=== PATIENT | female | born 1960 | race Caucasian/White ===

== ENCOUNTER 2016-07-04 14:02 | Emergency (ER) | payer BC ==
[2016-07-04] MEDS ORDERED: methylPREDNISolone SOD SUCC* 125 MG 2 ML VIAL IV ONE (14:28)
[2016-07-04] MEDS ORDERED: Famotidine IV* 10 MG/ML 2 ML (20 mg) IV SLOW PU ONE (14:29)
[2016-07-04] MEDS ORDERED: cefTRIAXone VIAL(*) 1,000 MG VIAL IVPB ONE (14:29)
[2016-07-04] MEDS ORDERED: LoraTADine TAB(NF) 10 MG TAB (AUTOSUB CETIRIRIZINE) PO ONE (14:32)
--- NOTE | 2016-07-04 14:32 | UC ---
Skin Complaint HPI - HPI Summary HPI Summary: Left facial swelling today. Awoke with it. Had headache last pm. No known infection or exposure to allergen. No dental pain - History of Current Complaint Chief Complaint: UCHeadache Time Seen by Provider: 07/04/16 14:26 Stated Complaint: FACIAL SWELLING/WARM/RED Hx Obtained From: Patient ?: No Onset/Duration: Sudden Onset, Lasting Hours, Still Present Timing: Constant Onset Severity: Moderate Current Severity: Severe Pain Intensity: 6 Pain Scale Used: 0-10 Numeric Location: Face - left side Character: Swelling, Pain, Redness, Painful Aggravating: Nothing Alleviating: Nothing Associated Signs & Symptoms: Positive: Rash, Tenderness - left rufino. Negative: Fever, Chills, Cough, Hoarseness, Throat Tightening, Red Streaks - Allergy/Home Medications Allergies/Adverse Reactions: Allergies Allergy/AdvReac Type Severity Reaction Status Date / Time No Known Allergies Allergy Verified 07/04/16 14:12 Home Medications: Home Medications Betamethasone Dipropionate Aug [Betamethasone Dipropionat] 1 applic TOPICAL BID PRN 07/04/16 [History Confirmed 07/04/16] Cholecalciferol [Vitamin D3] 1 tab PO DAILY 07/04/16 [History Confirmed 07/04/16 ] Insulin Aspart [Novolog] 1 units .ROUTE SEE INSTRUCTIONS 07/04/16 [History Confirmed 07/04/16] Lisinopril [Zestril 10 MG-] 1 tab PO DAILY 07/04/16 [History Confirmed 07/04/16] Multiple Vitamins W/ Minerals [One-A-Day For Her Vitacra] 1 tab PO DAILY [History Confirmed 07/04/16] Simvastatin [Zocor 40 MG (NF)] 1 tab PO BEDTIME 07/04/16 [History Confirmed ] Review of Systems Constitutional: Negative Skin: Rash - redness and swelling left face only Eyes: Negative ENT: Negative Respiratory: Negative Cardiovascular: Negative Gastrointestinal: Negative Motor: Negative Neurovascular: Negative Musculoskeletal: Negative Neurological: Negative Psychological: Negative All Other Systems Reviewed And Are Negative: Yes PMH/Surg Hx/FS Hx/Imm Hx Endocrine History Of: Reports: Diabetes, Dyslipidemia Cardiovascular History Of: Reports: Hypertension - Surgical History Surgical History: Yes Surgery Procedure, Year, and Place: Tubal Ligation; Bladder Mesh - Family History Known Family History: Positive: Cardiac Disease - Social History Alcohol Use: Occasionally Substance Use Type: None Smoking Status (MU): Never Smoked Tobacco Physical Exam Triage Information Reviewed: Yes Appearance: Well-Nourished, Ill-Appearing, Pain Distress Vital Signs: Initial Vital Signs Temp 98.3 F 07/04/16 14:07 Pulse 86 07/04/16 14:07 Resp 16 07/04/16 14:07 BP 157/76 07/04/16 14:07 Pulse Ox 95 07/04/16 14:07 Vital Signs Reviewed: Yes Eyes: Positive: Conjunctiva Clear ENT: Positive: Normal ENT inspection, Pharynx normal, TMs normal. Negative: Muffled/hoarse voice Neck: Positive: Supple, Nontender, No Lymphadenopathy Respiratory: Positive: Lungs clear, Normal breath sounds, No respiratory distress Cardiovascular: Positive: RRR, No Murmur, Pulses Normal, Brisk Capillary Refill Abdomen Description: Positive: Nontender, No Organomegaly, Soft Bowel Sounds: Positive: Present Musculoskeletal: Positive: Strength Intact, ROM Intact Neurological Exam: Normal Psychological Exam: Normal Skin: Positive: Other - left facial redness and swelling, no rash or redness or urticaria elsewhere; Tongue not swollen, lips not swollen. Re-Evaluation - Re-Evaluation First Eval Re-Evaluation Time: 15:20 - less swelling and redness, has a ride home, will give benadryl Change: Improved Course/Dx - Course Course Of Treatment: Pt's quick response to Rx as allergy with decreased redness and swelling, favors dx of allergic reaction above cellulitis, although allergen is still unknown. Do not feel it is due to lisinopril, as no tongue or lip swelling, but pt will discuss with her PCP. - Differential Diagnoses - Skin Complaint Differential Diagnoses: Allergic Reaction, Anaphylaxis, Angioedema, Cellulitis, Drug Rash - Diagnoses Provider Diagnoses: Acute allergic reaction with facial swelling. BP in poor control. Facial cellulitis Discharge - Discharge Plan Condition: Stable Disposition: HOME Prescriptions: Cephalexin CAP* [Keflex 500 CAP*] 500 mg PO QID #40 cap Famotidine TAB 40 MG(NF) [Pepcid TAB 40 MG(NF)] 40 mg PO DAILY #5 tab predniSONE TAB* [Deltasone TAB*] 40 mg PO DAILY #10 tab Patient Education Materials: Cellulitis (ED), General Allergic Reaction (ED) Referrals: Keri Brunson MD [Primary Care Provider] - 2 Days Nila Damon MD [Medical Doctor] - As Soon As Possible (follow up with an management specialist as soon as possible. ) Additional Instructions: Dr. Segovia gave you loratadine 10mg orally, then benadryl 50mg IV, pepcid 20mg IV and solumedrol 125mg IV for allergic reaction. She gave you ceftriaxone 1 gm for possible facial cellulitis with improvement of your symptoms. Take benadryl 50mg four times a day for the next 48 hrs, and take the antibiotic if your sinusitis symptoms continue. Call 911 and Go to the emergency room if you have new or worsening symptoms. Have your blood pressure rechecked within a month for sure, as it was elevated today. You did not have tongue or lip swelling today, so Dr. Segovia does not think that this is angioedema but lip and tongue swelling is a common reaction to lisinopril. So consider stopping the lisinopril after discussion with your doctor.
[2016-07-04] MEDS ORDERED: diPHENhydraMINE IV* 50 MG/ML 1 ml VIAL (BENADRYL) IV ONE (15:26)
[2016-07-04 16:17] VITALS: BP 146/77
== END 2016-07-04 16:21 | disposition home or self-care (01) ==
LOC: UCEAST 14:02
DX: T78.40XA Allergy, unspecified, initial encounter (principal); X58.XXXA Exposure to other specified factors, initial encounter; L03.211 Cellulitis of face; I10 Essential (primary) hypertension; E11.9 Type 2 diabetes mellitus without complications; Z79.4 Long term (current) use of insulin; E78.5 Hyperlipidemia, unspecified
CPT/HCPCS: 87651; 96374; 96375; 99213; A9270-GY; G0463; J0696; J1200; J2930

== ENCOUNTER 2017-05-19 09:52 | Emergency (ER) | payer BC ==
--- NOTE | 2017-05-19 10:02 | UC ---
Throat Pain/Nasal Callum HPI - HPI Summary HPI Summary: Pt presents with post nasal drip and dry cough for the last 2-3 weeks. Sinus pain/pressure/congestion for the last 5 days. She has been taking an OTC cold and flu medicine with no relief. Denies fever, chills, SOB, chest pain, abdominal pain. - History of Current Complaint Stated Complaint: SINUS ISSUE Hx Obtained From: Patient Onset/Duration: Gradual Onset - Allergies/Home Medications Allergies/Adverse Reactions: Allergies Allergy/AdvReac Type Severity Reaction Status Date / Time No Known Allergies Allergy Verified 05/19/17 10:01 Home Medications: Home Medications Betamethasone Dip 0.05% ON(NF) [Betamethasone Dipr 0.05% OINT(NF)] 1 applic TOPICAL DAILY PRN 05/19/17 [History Confirmed 05/19/17] PMH/Surg Hx/FS Hx/Imm Hx Endocrine History: Diabetes, Dyslipidemia Cardiovascular History: Hypertension - Surgical History Surgical History: Yes Surgery Procedure, Year, and Place: Tubal Ligation; Bladder Mesh - Family History Known Family History: Positive: Cardiac Disease - Social History Occupation: Employed Full-time Lives: With Family Alcohol Use: Occasionally Substance Use Type: None Smoking Status (MU): Never Smoked Tobacco Review of Systems Constitutional: Negative Skin: Negative Eyes: Negative ENT: Nasal Discharge, Sinus Congestion, Sinus Pain/Tenderness Respiratory: Cough Cardiovascular: Negative Gastrointestinal: Negative Neurological: Negative Psychological: Negative All Other Systems Reviewed And Are Negative: Yes Physical Exam - Summary Physical Exam Summary: GENERAL: NAD. WDWN HEENT: NC/AT. Conjunctiva clear without inflammation or discharge. TMs intact , no bulging, erythema, or edema. Nasal mucosa mildly swollen and erythematous with yellow/clear discharge. TTP maxillary sinus. Posterior oropharynx without exudates, erythema, or tonsillar enlargement. Uvula midline. NECK: Supple without lymphadenopathy CHEST: CTAB. No r/r/w. No accessory muscle use. Breathing comfortably and in no distress. CV: RRR. Without m/r/g. Pulses intact. SKIN: No rash or erythema noted. NEURO: Alert. CN II-XII grossly intact. PSYCH: Age appropriate behavior. Triage Information Reviewed: Yes Throat Pain/Nasal Course/Dx - Course Course Of Treatment: Sinusitis - pt says that zpak works best for her and doesn' t give her a yeast infection as much as others. Will rx for this. - Differential Dx/Diagnosis Provider Diagnoses: Sinusitis Discharge - Discharge Plan Condition: Stable Disposition: HOME Prescriptions: Azithromycin TAB* [Zithromax TAB (Z-IVON) 250 mg #6 tabs] 2 tab PO .TODAY, THEN 1 DAILY #1 ivon Patient Education Materials: Sinusitis (ED) Referrals: Keri Brunson MD [Primary Care Provider] - Additional Instructions: If you develop a fever, shortness of breath, chest pain, new or worsening symptoms - please call your PCP or go to the ED.
[2017-05-19 10:08] VITALS: BP 129/70
== END 2017-05-19 10:20 | disposition home or self-care (01) ==
LOC: UCEAST 09:52
DX: J32.9 Chronic sinusitis, unspecified (principal); E11.9 Type 2 diabetes mellitus without complications; Z79.4 Long term (current) use of insulin; E78.5 Hyperlipidemia, unspecified; I10 Essential (primary) hypertension
CPT/HCPCS: 99212; G0463

== ENCOUNTER 2019-05-10 15:57 | Emergency (ER) | payer BC ==
--- OUTSIDE RECORDS SUMMARY | 2019-05-10 16:04 | XMS REPORT | Summary of Care ---
:1960 Author Organization [facility] Address [address] [place] [address] Care Team Providers Name Role Phone Keri Brunson MD Primary Care Provider Reason for Visit Reason Comments Diabetes Encounter Details Date Type Department Care Team Description 04/06/2019 Office Visit Angela Valderrama Type 1 diabetes mellitus with hyperglycemia (Primary Dx); ORIENT SGEOFFREY Insulin long-term use; [address] Essential hypertension; [place] [address] Uncontrolled type 1 diabetes with retinopathy; [place], [place] [phone] Uncontrolled type 1 diabetes mellitus with hyperglycemia [id number] [phone] Allergies No Known Allergiesdocumented as of this encounter (statuses as of 04/12/2019) Medications Medication Sig Dispensed Refills Start End Date Status Date Blood Glucose by Does not 0 Active Monitoring Suppl apply route ([employer] CONTOUR NEXT MONITOR) w/Device KIT Multiple Take by mouth 0 Active Vitamins-Calcium daily (ONE-A-DAY WOMENS FORMULA PO) Cholecalciferol Take 4,000 0 Active (VITAMIN D) 2000 Units by mouth units tablet daily Insulin Infusion Use as 0 Active Pump (PARADIGM directed. REVEL INSULIN PUMP) Serial number NEO [id number] clotrimazole-betame Apply topically 0 Active thasone (LOTRISONE) as needed 8 cream ketoconazole Apply twice 30 g 2 Active (NIZORAL) 2 % cream daily 8 glucose blood Use as 600 each 3 Active (RUMA CONTOUR NEXT instructed to 8 TEST) test check blood stripIndications: glucose up to 6 Uncontrolled type 1 times daily diabetes mellitus E11.65 with hyperglycemia Insulin Infusion Use as 50 each 2 Active Pump Supplies directed. Use 8 (MINIMED INFUSION as directed SET-MMT 397) change site MISCIndications: every other day Uncontrolled type 1 E10.65 diabetes mellitus with hyperglycemia Insulin Infusion Use as 50 each 2 Active Pump Supplies directed. Use 8 (PARADIGM RESERVOIR as directed 3ML) every other MISCIndications: days E10.65 Uncontrolled type 1 diabetes mellitus with hyperglycemia MAGNESIUM PO Take by mouth 0 Active daily insulin glargine 30 units every 1 vial 1 09/23/19 Active (LANTUS) 100 24 hrs in case 9 20 UNIT/ML vial of insulin pump failure . Insulin Infusion by Does not 0 Active Pump (Larotec 670G apply route INSULIN PUMP) NEO Continuous Blood by Does not 0 Active Gluc Sensor apply route (Larotec GUARDIAN SENSOR 3) MISC Blood Glucose by Does not 0 Active Monitoring Suppl apply route (RUMA CONTOUR LINK 2.4) w/Device KIT Insulin Pump by Does not 0 Active Accessories apply route (Larotec GUARDIAN LINK 3) MISC glucose blood test 1 each by Other 0 Active strip route as needed for OtherUse as instructed Insulin Lispro 100 Subq continual 80 mL 1 Active UNIT/ML infusion via 0 Subcutaneous insulin pump. Solution Max Daily Dose (HumaLOG)Indication inclusive of s: Type 1 diabetes priming and mellitus with titration: 80 hyperglycemia units. Formulary alternative for Novolog Lisinopril 10 MG Take 1 tablet 90 tablet 1 Active Oral Tablet by mouth daily 0 (PRINIVIL,ZESTRIL) Simvastatin 40 MG Take 1 tablet 90 tablet 1 Active Oral Tablet (ZOCOR) by mouth 0 nightly simvastatin (ZOCOR) Take 1 tablet 90 tablet 1 04/06/19 Discontinued 40 MG tablet by mouth 9 20 (Reorder) nightly lisinopril Take 1 tablet 90 tablet 1 04/06/19 Discontinued (PRINIVIL,ZESTRIL) by mouth daily 9 20 (Reorder) 10 MG tablet documented as of this encounter (statuses as of 04/12/2019) Active Problems Problem Noted Date Obesity (BMI 30-39.9) 09/24/2018 Uncontrolled type 1 diabetes with retinopathy 02/24/2018 Diabetes type 1, uncontrolled HTN (hypertension) Vitiligo Insulin long-term use Last Assessment & Plan: 11/25/18 upgrade to 670G Medtronic Basal: 0:00- 1.4 2:00- 1.1 7:00- 1.25 12:00- 1.3 17:00- 1.2 21:00- 1.5 Bolus: 0:00- 1:8, 7:00- 1:6 11:00- 1:5.5 ISF: 1:30, Targets 0:00- 140-180 7:00- 100-100 21:00- 140-180 Active insulin 3:00. CGM settings per patient preference. Patient can start Auto Mode eight days after CGM initiation, pump settings will remain the same. documented as of this encounter (statuses as of 04/12/2019) Resolved Problems Problem Noted Date Resolved Date Type 2 diabetes mellitus with hyperglycemia, with long-term 10/18/20162017 current use of insulin documented as of this encounter (statuses as of 04/12/2019) Social History Tobacco Use Types Packs/Day Years Used Date Never Smoker Smokeless Tobacco: Never Used Alcohol Use Drinks/Week oz/Week Comments Yes 2 /week Sex Assigned at Date Recorded Not on file Job Start Date Occupation Industry Not on file Not on file Not on file Travel History Travel Start Travel End No recent travel history available. documented as of this encounter Last Filed Vital Signs Vital Sign Reading Time Taken Comments Blood Pressure 110/62 04/06/2019 2:43 PM EST Pulse 72 04/06/2019 2:43 PM EST Temperature - - Respiratory Rate 16 04/06/2019 2:43 PM EST Oxygen Saturation - - Inhaled Oxygen Concentration - - Weight 86.6 kg (190 lb 14.7 oz) 04/06/2019 2:43 PM EST Height 153.7 cm (5' 0.51") 04/06/2019 2:43 PM EST Body Mass Index 36.66 04/06/2019 2:43 PM EST documented in this encounter Patient Instructions Patient InstructionsLanAngela mohan PA - 04/06/2019 2:00 PM ESTInsulin long-term use 11/25/18 upgrade to 670G Pairintronic Basal: 0:00- 1.4 2:00- 1.1 7:00- 1.25 12:00- 1.3 17:00- 1.2 21:00- 1.5 Bolus: 0:00- 1:8, 7:00- 1:6 11:00- 1:5.5 ISF: 1:30, Targets 0:00- 140-180 7:00- 100-100 21:00- 140-180 Active insulin 3:00. CGM settings per patient preference. Patient can start Auto Mode eight days after CGM initiation, pump settings will remain the same. THE 15:15 RULE: Treating Low Blood Sugars DURING THE DAY If you get a reading below 70, eat/drink something that is 15 grams of carbohydrates (ex: half a cupof juice or regular soda, 4 glucose tablets, 3 small chewable candies, glass of milk), and recheck blood sugar reading in 15 minutes. Repeat if necessary to get blood sugar above 70. AT BED TIME AND BEFORE DRIVING CHECK YOU BLOOD GLUCOSE If you get a reading below 100, eat/drink something that is 15 grams of carbohydrates (ex: half a cup of juice or regular soda, 4 glucose tablets, 3 small chewable candies, glass of milk), and recheck blood sugar reading in 15 minutes. Repeat if necessary to get blood sugar above 100. Recommend physical activity minimum 30 minutes a day, most days of the week, or as tolerated Recommend 5+ servings of vegetables a day. Limit servings or starchy carbohydrates (pasta, rice, bread, potatoes, peas, corn). Please arrive 15 mins prior to your schedule office visit. Please bring your meter to every office visit. LILIAM DRIVING GUIDELINES The patient must demonstrate willingness to adhere to the following recommendations: ? Keep scheduled appointments with the medical provider and diabetes team members ? Bring their blood glucose meter for download ? Bring a detailed record to include food intake, blood glucose readings, insulin taken, exercise, and other pertinent information ? Download their blood glucose meter between appointments and fax results to the educator, based onfrequency set by the diabetes team members (if home equipment is available and based on patient capabilities) ? Identify appropriate steps in hypoglycemic prevention and treatment (refer to [place] hypoglycemic guidelines) ? Consistently wear diabetes identification ? Always carry fast acting glucose and/or carbohydrate snacks ? Always check blood glucose before driving with a goal to be above 100 mg/dL ? Carry a blood glucose meter at all times, when away from home ? Stop driving if hypoglycemia is suspected and check blood glucose immediately. o Treat low blood glucose as needed Do not resume driving until measured blood glucose level is at least 100 mg/dL documented in this encounter Progress Notes Angela Harris PA - 04/06/2019 2:00 PM EST Darlene Forde is a 59 y.o. female seen today for evaluation and management of type 1 diabetes. History taken from patient. She was last seen in our office 12/2018 by me. No changes in medical history since last visit. She was upgraded to the 670G pump in 11/2018. She is very happy with this pump. She started using Automode after her last OV. HPI: Diabetes first diagnosed: 1989 (c-peptide low and JASMIN + patient has type 1 diabetes) Pump: 670G Insulin: Novolog Basal Rates: 00:00: 1.40 02:00: 1.10 07:00: 1.25 12:00: 1.30 17:00: 1.20 21:00: 1.50 C:I ratio: 00:00: 8 07:00: 6.4 11:00: 5.9 Sensitivity: 30 BG target: 00:00: 140-180 07:00: 100 21:00: 140-180 TDD insulin: 47 units Avg daily basal: 29 units; 62% Avg daily bolus: 18 units; 38% She changes her infusion site every 3 days and denies any problems with irritation, infection or scar tissue. She use the bolus wizard Last a1C: 7.8 Statin: yes DIABETES RELATED ROS: 1. Blood sugar checks x 4/day 2. Symptoms of hypoglycemia: not often Require outside assistance: no Loss of consciousness: no Seizure: no Medic Alert: no 3. Threshold: 60s 4. Diabetic ketoacidosis: no 5. Neuropathic symptoms (paresthesiae/numbness/pain): no 6. Last eye exam: 02/2019- mild DR 7. Macrovascular disease symptoms: angina: no intermittent claudication: no TIA: no 8. Foot Ulceration: no 9. Spiral Tube Winder Helper: Yes- Dr. Klein 10. Link Trainer Maintenance Man: no 11. Warehouse Specialist: no DIET Numbers of meals per day: 3 Breakfast: oatmeal or breakfast bar Lunch: sometimes out, yogurt and fruit, food from home Dinner: meat, starch and vegetable Beverages: water, late on occasion, diet cranberry, diet soda Snacks: cheese and crackers, nuts, candy Needs for diabetes education assessed: yes HOME BLOOD GLUCOSE RECORD: Using CGM REVIEW OF CONTINUOUS GLUCOSE MONITOR DATA Data from the continue glucose monitor was reviewed. Average glucose: 157 Standard deviation: 46 Usage percentage: 94% Percent glucose in target range: 77% Percent glucose above target: 23% Percent glucose below target: 0% Interpretation: BG rising after meals. Questions or concerns: None PHQ-2 Score: 0 PHQ-9 Score: Past Medical History: Diagnosis Date Diabetes type 1, uncontrolled HTN (hypertension) Vitiligo Past Surgical History: Procedure Laterality Date EYE SURGERY Left 2006 laser TUBAL LIGATION Family History Problem Relation Age of Onset Thyroid disease Mother Thyroid disease Sister Diabetes Neg Hx SOCIAL HISTORY: Social History Tobacco Use Smoking status: Never Smoker Smokeless tobacco: Never Used Substance Use Topics Alcohol use: Yes Comment: 2 /week Drug use: No No Known Allergies Current Outpatient Medications Medication Sig Dispense Refill Blood Glucose Monitoring Suppl (RUMA CONTOUR LINK 2.4) w/Device KIT by Does not apply route Blood Glucose Monitoring Suppl (RUMA CONTOUR NEXT MONITOR) w/Device KIT by Does not apply route Cholecalciferol (VITAMIN D) 2000 units tablet Take 4,000 Units by mouth daily clotrimazole-betamethasone (LOTRISONE) cream Apply topically as needed Continuous Blood Gluc Sensor (Larotec GUARDIAN SENSOR 3) MISC by Does not apply route glucose blood (RUMA CONTOUR NEXT TEST) test strip Use as instructed to check blood glucose up to 6 times daily E11.65 600 each 3 glucose blood test strip 1 each by Other route as needed for OtherUse as instructed insulin glargine (LANTUS) 100 UNIT/ML vial 30 units every 24 hrs in case of insulin pump failure . 1 vial 1 Insulin Infusion Pump (Larotec 670G INSULIN PUMP) NEO by Does not apply route Insulin Infusion Pump (mention REVEL INSULIN PUMP) NEO Use as directed. Serial number [id number] Insulin Infusion Pump Supplies (MINIMED INFUSION SET-MMT 397) MISC Use as directed. Use as directed change site every other day E10.65 50 each 2 Insulin Infusion Pump Supplies (PARADIGM RESERVOIR 3ML) MISC Use as directed. Use as directedevery other days E10.65 50 each 2 Insulin Lispro 100 UNIT/ML Subcutaneous Solution (HumaLOG) Subq continual infusion via insulin pump. Max Daily Dose inclusive of priming and titration: 80 units. Formulary alternative for Novolog 80 mL 1 Insulin Pump Accessories ([employer] GUARDIAN LINK 3) MISC by Does not apply route ketoconazole (NIZORAL) 2 % cream Apply twice daily 30 g 2 lisinopril (PRINIVIL,ZESTRIL) 10 MG tablet Take 1 tablet by mouth daily 90 tablet 1 MAGNESIUM PO Take by mouth daily Multiple Vitamins-Calcium (ONE-A-DAY WOMENS FORMULA PO) Take by mouth daily simvastatin (ZOCOR) 40 MG tablet Take 1 tablet by mouth nightly 90 tablet 1 No current facility-administered medications for this visit. ROS: The remainder of complete review of systems is otherwise negative except as noted in HPI. PHYSICAL EXAM: Vitals: 04/06/19 1443 BP: 110/62 BP Location: Right arm Patient Position: Sitting Cuff size: Adult Large Pulse: 72 Resp: 16 Weight: 86.6 kg (190 lb 14.7 oz) Height: 1.537 m (5' 0.51") Body mass index is 36.66 kg/m. Wt Readings from Last 3 Encounters: 04/06/19 86.6 kg (190 lb 14.7 oz) 12/29/18 86.1 kg (189 lb 13.1 oz) 09/24/18 87.1 kg (192 lb 0.3 oz) BP Readings from Last 3 Encounters: 04/06/19 110/62 12/29/18 130/72 09/24/18 118/64 GENERAL: Awake, alert and in no acute distress EYES: conjunctivae are pink and moist, anicteric ENT/MOUTH: dentition: good, tongue normal NECK: No adenopathy. THYROID: thyroid is normal, no nodules, non-tender CARDIOVASCULAR: regular rate and rhythm, no murmur RESPIRATORY: Clear to auscultation bilaterally. No wheezing, rales or rhonchi GASTROINTESTINAL: soft, non-tender, non-distended, normal bowel sounds MUSCULOSKELETAL: normal muscle mass, normal gait SKIN: No breakdown, nails ok, injection sites no lipohypertrophy NEUROLOGIC: Sensation intact PSYCHIATRIC: mood and affect are normal. LABS: results reviewed in epic, discussed with the pt. Lab Results Component Value Date HGBA1C 7.8 (H) 12/29/2018 HGBA1C 7.9 (H) 08/25/2018 HGBA1C 7.9 (H) 02/24/2018 Lab Results Component Value Date POCGLU 100 12/29/2018 Lab Results Component Value Date CHO 160 08/25/2018 TRIG 126 08/25/2018 HDL 58 08/25/2018 LDL 77 08/25/2018 VLDL 25 08/25/2018 Lab Results Component Value Date LDLDIRECT 89 08/25/2018 LDLDIRECT 73 10/21/2017 LDLDIRECT 120 (H) 04/22/2017 Lab Results Component Value Date CREATININE 0.93 (H) 08/25/2018 BUN 19 08/25/2018 NA 140 08/25/2018 K 4.2 08/25/2018 CL 101 08/25/2018 No components found for: EGFR Lab Results Component Value Date MICROALBCR 8.1 08/25/2018 Lab Results Component Value Date AST 22 08/25/2018 Lab Results Component Value Date ALT 22 08/25/2018 Lab Results Component Value Date TSH 1.650 08/25/2018 Lab Results Component Value Date FREET4 1.28 10/21/2017 Lab Results Component Value Date CALCIUM 9.7 08/25/2018 Assessment/Plan: 1. Diabetes Mellitus Type 1: A1C 7.5, prior A1C 7.8 Goal ~ 7 with no lows. I recommend adjusting carb ratios -She is very happy with her 670G pump. She is doing well in [employer]. She is currently out of Automode. She did not realize this. She was able to get back into Automode at her visit -BG rising after meals. Carb ratios adjusted -We discussed importance of timing of bolus and bolusing BEFORE meals -Check BG 4-6 times daily and send logs in for review if BG below 70 or above 250 frequently. -We reviewed the 15:15 rule for treating hypoglycemia and ketone testing -labs reviewed The patient has been instructed to check their blood glucose level 4-6 times per day including fasting, premeal, and bedtime, but up to 8 times per day for sickday management, when symptomatic, or is correcting a low blood sugar. Should she note readings below 70 or above 250 on a regular basis, she is to contact the office for further medication adjustment. She is aware of the 15:15 rule to treat hypoglycemic episodes and proper diabetic footcare. 2. Blood Pressure: Within guidelines today at 110/62. She is currently on medications for this. We will continue to monitor. -On ACEI 3. Lipids: She is currently on medications for this. We will continue to monitor. -On statin 4. Retinopathy: Follow with opthalmology Recommend yearly dilated eye exam and immunization (Flu vaccination/Pneumonia vaccination, Vaccine for Shingles and Hepatitis B vaccination). RTC 3 months Diabetes Self-Management Education/Training (DSME/T) Per [facility] policy AMB J-19, the Liliam RN splitting machine operator helper CDE may provide my patient with insulin adjustmentsand all diabetes management guidelines per approved policies AMB J-01 through AMB J-18. My patient may receive diabetes self- management education for any nursing, nutrition, or physical therapy needs which arise and require the expertise of a Liliam educator. Insulin long-term use 11/25/18 upgrade to 670G Medtronic Basal: 0:00- 1.4 2:00- 1.1 7:00- 1.25 12:00- 1.3 17:00- 1.2 21:00- 1.5 Bolus: 0:00- 1:8, 7:00- 1:6 11:00- 1:5.5 ISF: 1:30, Targets 0:00- 140-180 7:00- 100-100 21:00- 140-180 Active insulin 3:00. CGM settings per patient preference. Patient can start Auto Mode eight days after CGM initiation, pump settings will remain the same. Orders Placed This Encounter Lisinopril 10 MG Oral Tablet (PRINIVIL,ZESTRIL) Simvastatin 40 MG Oral Tablet (ZOCOR) Thank you for allowing us to participate in the care of your patient. Please call us with further questions. documented in this encounter Plan of Treatment Date Type Specialty Care Team Description 08/19/2019 Office Visit Endocrinology Angela Harris PA [address] [place] [address] [phone] 08/26/2019 Office Visit Endocrinology Ernie Lanre Christiansen, URVASHI [address] [place] [address] Health Maintenance Due Date Last Done Comments Hepatitis C Screening (B. 1960 [id number]) MMR Vaccines (1 of 1 - Standard 1959 series) Varicella Vaccines (1 of 2 - 1961 2-dose childhood series) Pneumococcal Vaccine: Pediatrics 01/11/1964 (0 to 5 Years) and At-Risk Patients (6 to 64 Years) (1 of 1 - PPSV23) DTaP,Tdap,and Td Vaccines (1 - 1965 Tdap) HIV Screening 1971 Hepatitis B Vaccines (1 of 3 - 1977 Risk 3-dose series) Cervical Cancer Screening 5 years 1979 Breast Cancer Screening 2 years 01/11/2008 Colon Cancer Screening 10 yrs 01/11/2008 Zoster Vaccines (1 of 2) 01/11/2008 Influenza Vaccine 12/08/2018 Pneumococcal Vaccine: 65+ Years (1 2023 of 2 - PCV13) HIB Vaccines Aged Out No longer eligible based on patient's age to complete this topic Hepatitis A Vaccines Aged Out No longer eligible based on patient's age to complete this topic IPV Vaccines Aged Out No longer eligible based on patient's age to complete this topic documented as of this encounter Procedures Procedure Name Priority Date/Time Associated Comments Diagnosis POCT GLUCOSE, DOCKED Routine 04/06/2019 2:34 PM Results for this EST procedure are in the results section. POCT HEMOGLOBIN A1C, Routine 04/06/2019 2:26 PM Results for this DOCKED EST procedure are in the results section. documented in this encounter Results POCT glucose, docked (04/06/2019 2:34 PM EST) POC Glucose 111 70 - 140 mg/dL [facility] POC Specimen Whole Blood Performing Organization Address City/State/Zipcode Phone Number POINT OF CARE TEST [address] [place] [address] [facility] [address] [place] [address] POCT Hemoglobin A1C, Docked (04/06/2019 2:26 PM EST) Hemoglobin A1C 7.5 (H) 4.0 - 6.0 % [facility] POC Estimated Avg Glucose 169 (H) <126 mg/dL [facility] POC Specimen Whole Blood Performing Organization Address City/State/Zipcode Phone Number POINT OF CARE TEST [address] [place] [address] [facility] [address] [place] [address] documented in this encounter Visit Diagnoses Diagnosis Type 1 diabetes mellitus with hyperglycemia - Primary Type I (juvenile type) diabetes mellitus without mention of complication, not stated as uncontrolled Insulin long-term use Encounter for long-term (current) use of insulin Essential hypertension Unspecified essential hypertension Uncontrolled type 1 diabetes with retinopathy Type I (juvenile type) diabetes mellitus with ophthalmic manifestations, uncontrolled Uncontrolled type 1 diabetes mellitus with hyperglycemia documented in this encounter
[2019-05-10 16:13] VITALS: BP 149/84
--- NOTE | 2019-05-10 16:51 | UC ---
Throat Pain/Nasal [place]um HPI - HPI Summary HPI Summary: 59-year-old woman comes in with a chief complaint of sinusitis symptoms. Symptoms started 3-4 days ago with some rhinorrhea. Has been having clear and yellow rhinorrhea. She is a lot of frontal sinus pressure. Has postnasal drip with some sore throat. No complaint of any shortness of breath. Has tried over -the-counter medications and is not helping with the symptoms. - History of Current Complaint Chief Complaint: UCRespiratory Stated Complaint: COLD SYMPTOMS Time Seen by Provider: 05/10/19 16:38 Pain Intensity: 3 - Allergies/Home Medications Allergies/Adverse Reactions: Allergies Allergy/AdvReac Type Severity Reaction Status Date / Time No Known Allergies Allergy Verified 05/10/19 16:13 Home Medications: Home Medications Insulin Aspart [Novolog] 1 units .ROUTE SEE INSTRUCTIONS 07/04/16 [History Confirmed 05/10/19] Lisinopril [Zestril 10 MG-] 1 tab PO DAILY 07/04/16 [History Confirmed 05/10/19] Pedi Multivit 99/Vit D3/Vit K [One-A-Day For Her Vitacra] 1 tab PO DAILY [History Confirmed 05/10/19] Simvastatin [Zocor 40 MG (NF)] 1 tab PO BEDTIME 07/04/16 [History Confirmed 04/29] Betamethasone Dip 0.05% ON(NF) [Betamethasone Dipr 0.05% OINT(NF)] 1 applic TOPICAL DAILY PRN 05/19/17 [History Confirmed 05/10/19] Amoxicillin PO (*) [Amoxicillin 875 MG (*)] 875 mg PO BID #20 tab 05/10/19 [Rx] Cholecalciferol (Vitamin D3) [Vitamin D3] 2,000 unit PO DAILY 05/10/19 [History Confirmed 05/10/19] Fluticasone NASAL SPRAY 50MCG* [Flonase NASAL SPRAY 50MCG*] 2 spray BOTH NARES DAILY #1 btl 05/10/19 [Rx] PMH/Surg Hx/FS Hx/Imm Hx Previously Healthy: Yes Endocrine History: Diabetes, Dyslipidemia Cardiovascular History: Hypertension - Surgical History Surgical History: Yes Surgery Procedure, Year, and Place: Tubal Ligation; Bladder Mesh - Family History Known Family History: Positive: Cardiac Disease - Social History Alcohol Use: Occasionally Substance Use Type: None Smoking Status (MU): Never Smoked Tobacco Review of Systems All Other Systems Reviewed And Are Negative: Yes Constitutional: Positive: Other - SEE HPI Skin: Positive: Negative Eyes: Positive: Negative ENT: Positive: Sore Throat, Nasal Discharge, Sinus Congestion, Sinus Pain/ Tenderness Respiratory: Positive: Negative Cardiovascular: Positive: Negative Gastrointestinal: Positive: Negative Motor: Positive: Negative Neurovascular: Positive: Negative Musculoskeletal: Positive: Negative Neurological/Mental Status: Positive: Negative Psychological: Positive: Negative Is Patient Immunocompromised?: No Physical Exam Triage Information Reviewed: Yes Appearance: No Pain Distress, Well-Nourished, Ill-Appearing - MILD Vital Signs: Initial Vital Signs Temp 98.7 F 05/10/19 16:07 Pulse 94 05/10/19 16:07 Resp 16 05/10/19 16:07 BP 149/84 05/10/19 16:07 Pulse Ox 97 05/10/19 16:07 Vital Signs Reviewed: Yes Eye Exam: Normal Eyes: Positive: Conjunctiva Clear ENT: Positive: Pharyngeal erythema, Nasal congestion, Nasal drainage, TMs normal Neck: Positive: Supple Respiratory: Positive: Lungs clear, Normal breath sounds, No respiratory distress Cardiovascular: Positive: RRR Musculoskeletal: Positive: Strength Intact, ROM Intact Neurological: Positive: Alert, Muscle Tone Normal Psychological: Positive: Age Appropriate Behavior Skin Exam: Normal Throat Pain/Nasal Course/Dx - Course Course Of Treatment: Patient will treat symptomatically for her sinusitis. DISCUSSED VIRAL VERSES BACTERIAL INFECTIONS AND THE ROLE OF ANTIBIOTICS. PATIENT PREFERS TO BE ON ANTIBIOTICS AT THIS TIME. - Differential Dx/Diagnosis Provider Diagnosis: Sinusitis Discharge ED - Sign-Out/Discharge Documenting (check all that apply): Patient Departure All imaging exams completed and their final reports reviewed: No Studies - Discharge Plan Condition: Stable Disposition: HOME Prescriptions: Amoxicillin PO (*) [Amoxicillin 875 MG (*)] 875 mg PO BID #20 tab Fluticasone NASAL SPRAY 50MCG* [Flonase NASAL SPRAY 50MCG*] 2 spray BOTH NARES DAILY #1 btl Patient Education Materials: Sinusitis (ED) Forms: *Work Release Referrals: Keri Brunson MD [Primary Care Provider] - Additional Instructions: FOLLOW UP WITH YOUR DOCTOR IF NOT COMPLETELY IMPROVED. GET REEVALUATED SOONER IF NOT IMPROVED OR WORSE OR ANY QUESTIONS OR CONCERNS. - Billing Disposition and Condition Condition: STABLE Disposition: Home
== END 2019-05-10 17:00 | disposition home or self-care (01) ==
LOC: UCEAST 15:57
DX: J32.9 Chronic sinusitis, unspecified (principal); J39.2 Other diseases of pharynx; E78.5 Hyperlipidemia, unspecified; E11.9 Type 2 diabetes mellitus without complications; I10 Essential (primary) hypertension; Z79.4 Long term (current) use of insulin; Z79.899 Other long term (current) drug therapy
CPT/HCPCS: 99212; G0463